=== PATIENT | female | born 1975 | race Caucasian/White ===

== ENCOUNTER 2017-07-19 21:41 | Emergency (ER) | payer OTHER, SELFPAY ==
[2017-07-19 21:43] VITALS: BP 184/106; PULSE 105; RESP 20; TEMP 36.7; O2SAT 100; BMI 50.1
--- NOTE | 2017-07-19 21:43 | ED.RN ---
NO OLD EKG'S IN MUSE
--- NOTE | 2017-07-19 21:50 | EKG12_ITS ---
Test Reason : CP Blood Pressure : / mmHG Vent. Rate : 102 BPM Atrial Rate : 102 BPM P-R Int : 158 ms QRS Dur : 090 ms QT Int : 374 ms P-R-T Axes : 053 051 041 degrees QTc Int : 487 ms Sinus tachycardia Otherwise normal ECG Confirmed by LUIZA ROE, JOSY ([id number]), slot editor NORTH LYLE ([id number]) on 07/22/2017 4:08:26 PM Referred By: ROHAN Confirmed By:JOSY JARRETT MD
--- NOTE | 2017-07-19 22:14 | ED.VISSUMM ---
- ER Visit Summary Date of Service: 07/19/17 Chief Complaint: Chest pain History of Present Illness: The patient is a 41 F who was diagnosed with influenza on Saturday. She was started on Tamiflu given a prescription for Zithromax should her runny nose continue past when she finished her Tamiflu. She states that she did not start the Zithromax today. She has not had any more fevers. The patient states that today at [address] she developed a sensation of a 700 pound weight on her chest. She felt wheezing. She quit smoking 5 months ago. She has no diagnosis of asthma chronic bronchitis or COPD. Physical Examination: Afebrile vital signs are stable Gen: Well-nourished well-developed Head: Normocephalic atraumatic Eyes: Perrl EOMI ENT: TMs clear rhinorrhea moist mucous membranes Neck: Supple no lymphadenopathy no JVD nontender CVS: Regular rate rhythm no murmurs normal S1-S2 Respiratory: No distress diminished breath sounds with end expiratory wheeze chest nontender Abdomen: Soft nontender nondistended normal bowel sounds no masses Back: Nontender Extremity: Nontender no edema Skin: Normal color no rash Neuro: alert orientated ?3 CN II-XII intact normal strength sensation reflexes gait cerebellar Psych: Normal affect normal mood Test Results: Chest x-ray was obtained Emergency Department Course and Treatment: Patient received a DuoNeb Impression: [] This note was generated with [employer] dictation software. It may contain incorrect words, spelling, and punctuation that were not noted in review of the chart prior to signing ED Disposition - Plan for ED Patient: Chief Complaint: Chest Pain Referrals: [facility] Doctor,Out of [Primary Care Provider] -
--- NOTE | 2017-07-19 22:18 | ED.DCSUM_ITS ---
- ER Visit Summary Date of Service: 07/19/17 Chief Complaint: Chest pain History of Present Illness: The patient is a 41 F who was diagnosed with influenza on Saturday. She was started on Tamiflu given a prescription for Zithromax should her runny nose continue past when she finished her Tamiflu. She states that she did not start the Zithromax today. She has not had any more fevers. The patient states that today at [address] she developed a sensation of a 700 pound weight on her chest. She felt wheezing. She quit smoking 5 months ago. She has no diagnosis of asthma chronic bronchitis or COPD. Physical Examination: Afebrile vital signs are stable Gen: Well-nourished well-developed Head: Normocephalic atraumatic Eyes: Perrl EOMI ENT: TMs clear rhinorrhea moist mucous membranes Neck: Supple no lymphadenopathy no JVD nontender CVS: Regular rate rhythm no murmurs normal S1-S2 Respiratory: No distress diminished breath sounds with end expiratory wheeze chest nontender Abdomen: Soft nontender nondistended normal bowel sounds no masses Back: Nontender Extremity: Nontender no edema Skin: Normal color no rash Neuro: alert orientated ?3 CN II-XII intact normal strength sensation reflexes gait cerebellar Psych: Normal affect normal mood Test Results: Chest x-ray was obtained Emergency Department Course and Treatment: Patient received a DuoNeb Impression: [] This note was generated with [employer] dictation software. It may contain incorrect words, spelling, and punctuation that were not noted in review of the chart prior to signing ED Disposition - Plan for ED Patient: Chief Complaint: Chest Pain Referrals: [facility] Doctor,Out of [Primary Care Provider] -
[2017-07-19] MEDS: Ipratropium/Albuterol Sulfate 3 ML AMPUL.NEB INHALATION (22:27)
--- NOTE | 2017-07-19 22:40 | RAD_ITS ---
STUDY: X-RAY CHEST REASON FOR EXAM: Female, 41 years old. Chest pain TECHNIQUE: Frontal and lateral views of the chest. COMPARISON: None. FINDINGS: The lungs are clear and expanded. There is no demonstrated pleural abnormality. Normal size heart. Normal mediastinum and carmita. Normal visualized pulmonary arteries. Normal visualized aortic arch and descending thoracic aorta. Normal visualized thoracic spine. Normal visualized ribs, clavicles, and shoulders. There is no demonstrated abnormality of the visualized soft tissue structures of the upper abdomen. RAD/Chest PA and Lateral IMPRESSION: No acute cardiopulmonary disease. Electronically Signed: uCrt Hahn DO at 23:15 EST , Service support ,
[2017-07-19 22:57] VITALS: PULSE 97; RESP 25; O2SAT 98
--- NOTE | 2017-07-19 22:58 | ED.DCSUM_ITS ---
- ER Visit Summary Date of Service: 07/19/17 Chief Complaint: [] History of Present Illness: The patient is a 41 F [] Physical Examination: [] Test Results: [] Emergency Department Course and Treatment: [] Treatment Plan: [] Disposition: [] Impression: [] This note was generated with [employer] dictation software. It may contain incorrect words, spelling, and punctuation that were not noted in review of the chart prior to signing ED Disposition - Plan for ED Patient: Disposition: Home or Assisted Living Chief Complaint: Chest Pain Instructions: ED Wheezing Prescriptions: Prednisone [Deltasone] 60 mg PO DAILY #15 tab Referrals: [facility] Doctor,Out of [NON-STAFF] - 3-5 Days if not improving
[2017-07-19 23:02] VITALS: BP 136/93; PULSE 95; PULSE 97; RESP 17; RESP 19; O2SAT 98; O2SAT 99
== END 2017-07-19 23:15 | disposition home or self-care (01) ==
PROVIDERS: Emergency Provider Emergency Medicine
DX: J20.9 Acute bronchitis, unspecified (principal); E66.9 Obesity, unspecified; Z68.43 Body mass index [BMI] 50.0-59.9, adult; Z87.891 Personal history of nicotine dependence
CPT/HCPCS: 71046; 93005; 94640; 99283; A4216